=== PATIENT | female | born 1975 | race Caucasian/White ===

== ENCOUNTER 2017-08-09 17:20 | Emergency (ER) | payer BC, OTHER ==
[2017-08-09] MEDS ORDERED: ONDANSETRON HCL INJ/PF 4 MG/2 ML SDV IV ONE (17:37)
[2017-08-09] MEDS ORDERED: NORMAL SALINE 1000 ML 1,000 ML IV ONE ×3 (17:37→20:58)
--- NOTE | 2017-08-09 17:41 | ER Document Report ---
ED Medical Screen (RME) - General Chief Complaint: Fever Stated Complaint: CHEST PAIN Time Seen by Provider: 08/09/17 17:35 Mode of Arrival: Medic Information source: Patient, Relative TRAVEL OUTSIDE OF THE [place] IN LAST 30 DAYS: No - HPI Patient complains to provider of: chest/abdominal/flank pain Onset: Other - pt. states she has been having chest/abd/ and flank pain for the past several days. Has h/o kidney stones and is being treated for a UTI. She states she fell recently and injured her nose - Related Data Allergies/Adverse Reactions: ciprofloxacin [Ciprofloxacin] Allergy (Verified 08/09/17 17:33) codeine [Codeine] Allergy (Verified 08/09/17 17:33) ibuprofen [From Motrin] Allergy (Verified 08/09/17 17:33) ketorolac tromethamine [From Toradol] Allergy (Verified 08/09/17 17:33) naproxen [From Naprosyn] Allergy (Verified 08/09/17 17:33) Penicillins Allergy (Verified 08/09/17 17:33) Sulfa (Sulfonamide Antibiotics) Allergy (Verified 08/09/17 17:33) latex Allergy (Uncoded 08/09/17 17:33) Past Medical History - Past Medical History Cardiac Medical History: Reports: Hx Hypertension Pulmonary Medical History: Reports: Hx Pneumonia Neurological Medical History: Reports: Hx Migraine Renal/ Medical History: Denies: Hx Peritoneal Dialysis Psychiatric Medical History: Reports: Hx Depression Past Surgical History: Reports: Hx Abdominal Surgery - lap band removal 08/08/15 , Hx Appendectomy, Hx Cholecystectomy - 2000, Hx Hysterectomy - Immunizations Hx Diphtheria, Pertussis, Tetanus Vaccination: Yes Physical Exam - Vital signs Vitals: Temp Pulse Resp BP Pulse Ox 100.4 F 90 22 H 99/64 L 98 08/09/17 17:30 08/09/17 17:30 08/09/17 17:30 08/09/17 17:30 08/09/17 17:30 Course - Vital Signs Vital signs: Temp Pulse Resp BP Pulse Ox 100.4 F 90 22 H 99/64 L 98 08/09/17 17:30 08/09/17 17:30 08/09/17 17:30 08/09/17 17:30 08/09/17 17:30
[2017-08-09 18:04] LABS: ABSOLUTE BASOPHILS # (AUTO) 0.1 10^3/uL (0.0-0.2); ABSOLUTE LYMPHOCYTES (AUTO) 1.2 10^3/uL (0.5-4.7); ABSOLUTE MONOCYTES (AUTO) 1.4 10^3/uL (0.1-1.4); ABSOLUTE NEUT (AUTO) 11.9 10^3/uL (1.7-8.2); BASOPHILS % (AUTO) 0.7 % (0-2); HEMATOCRIT 34.9 % (36.0-47.0); HEMOGLOBIN 12.4 g/dL (12.0-15.5); HGB HCT DIFFERENCE 2.3; LYMPHOCYTES % (AUTO) 8.2 % (13-45); MEAN CORPUSCULAR HEMOGLOBIN 31.8 pg (27.0-33.4); MEAN CORPUSCULAR HGB CONC 35.7 g/dL (32.0-36.0); MEAN CORPUSCULAR VOLUME 89 fl (80-97); MONOCYTES % (AUTO) 9.4 % (3-13); RED BLOOD COUNT 3.91 10^6/uL (3.72-5.28); RED CELL DISTRIBUTION WIDTH 13.3 % (11.5-14.0); SEGMENTED NEUTROPHILS % (AUTO) 81.7 % (42-78); WHITE BLOOD COUNT 14.6 10^3/uL (4.0-10.5)
--- NOTE | 2017-08-09 18:09 | RADIOLOGY REPORT (SQ) ---
EXAM DESCRIPTION: CHEST PA/LAT COMPLETED DATE/TIME: 08/09/2017 6:00 pm REASON FOR STUDY: fall; rib injury COMPARISON: 05/28/2016 EXAM PARAMETERS: NUMBER OF VIEWS: two views TECHNIQUE: Digital Frontal and Lateral radiographic views of the chest acquired. RADIATION DOSE: NA LIMITATIONS: none FINDINGS: LUNGS AND PLEURA: No opacities, masses or pneumothorax. No pleural effusion. MEDIASTINUM AND HILAR STRUCTURES: No masses or contour abnormalities. HEART AND VASCULAR STRUCTURES: Heart normal size. No evidence for failure. BONES: No acute findings. HARDWARE: None in the chest. OTHER: No other significant finding. IMPRESSION: NO SIGNIFICANT RADIOGRAPHIC FINDING IN THE CHEST. TECHNICAL DOCUMENTATION: JOB ID: [id number] [employer]- All Rights Reserved
[2017-08-09] MEDS ORDERED: PROMETHAZINE HCL INJ 25 MG/1 ML VIAL IV ONE (18:16)
[2017-08-09 18:28] LABS: ALANINE AMINOTRANSFERASE 46 U/L (9-52); ALBUMIN 4.3 g/dL (3.5-5.0); ALKALINE PHOSPHATASE 111 U/L (38-126); ANION GAP 17 (5-19); ASPARTATE AMINO TRANSFERASE 51 U/L (14-36); BILIRUBIN,DIRECT 0.8 mg/dL (0.0-0.4); BILIRUBIN,TOTAL 1.6 mg/dL (0.2-1.3); BLOOD UREA NITROGEN 50 mg/dL (7-20); CALCIUM 8.8 mg/dL (8.4-10.2); CARBON DIOXIDE 21 mmol/L (22-30); CHLORIDE 92 mmol/L (98-107); CREATINE KINASE 248 U/L (30-135); CREATININE RESULT 2.48 mg/dL (0.52-1.25); GLUCOSE 144 mg/dL (75-110); LIPASE 126.3 U/L (23-300); SODIUM 130.1 mmol/L (137-145); TOTAL PROTEIN 7.3 g/dL (6.3-8.2)
--- NOTE | 2017-08-09 18:28 | RADIOLOGY REPORT (SQ) ---
EXAM DESCRIPTION: CT LTD RENAL STONE PROTOCOL ON COMPLETED DATE/TIME: 08/09/2017 6:06 pm REASON FOR STUDY: fall; rib injury COMPARISON: None. TECHNIQUE: CT scan of the abdomen and pelvis performed without intravenous or oral contrast. Images reviewed with lung, soft tissue, and bone windows. Reconstructed coronal and sagittal MPR images revi ewed. All images stored on PACS. All CT scanners at this facility use dose modulation, iterative reconstruction, and/or weight based d osing when appropriate to reduce radiation dose to as low as reasonably achievable (ALARA). [facility]: Dose Right [facility]: CareDose [facility]: Dose Right [facility]: Teradose 4D [facility]: Smart Remotemedical RADIATION DOSE: Up-to-date CT equipment and radiation dose reduction techniques were employed. CTDIv ol: 18.2 mGy. DLP: 1080 mGy-cm.mGy. LIMITATIONS: None. FINDINGS: LOWER CHEST: No significant findings. No nodules or infiltrates. NON-CONTRASTED LIVER, SPLEEN, ADRENALS: The liver is diffusely hypodense. There are no masses. The spleen is normal. There is no adrenal mass. PANCREAS: No masses. No peripancreatic inflammatory changes. GALLBLADDER: Surgically absent. RIGHT KIDNEY AND URETER: No suspicious masses. Assessment limited by lack of IV contrast. No signif icant calcifications. No hydronephrosis or hydroureter. LEFT KIDNEY AND URETER: No suspicious masses. Assessment limited by lack of IV contrast. No signifi cant urinary calcifications. There appears to be a prominent phlebolith near the left ureter on imag e 58 series 3. No hydronephrosis or hydroureter. AORTA AND RETROPERITONEUM: No aneurysm. No retroperitoneal masses or adenopathy. BOWEL AND PERITONEAL CAVITY: Sigmoid diverticula are present. There are no acute inflammatory change s. APPENDIX: Surgically absent. PELVIS, BLADDER, AND ABDOMINAL WALL:The urinary bladder is incompletely filled but otherwise unremark able. The uterus is absent. There is no adnexal mass or fluid collection. BONES: No significant findings. OTHER: No other significant finding. IMPRESSION: 1. Fatty infiltration of the liver. 2. There is no urinary pathology. 3. Diverticulosis coli. 4. There are no findings that explain the patient's pain. COMMENT: Quality ID # [id number]: Final reports with documentation of one or more dose reduction techniques (e.g., Automated exposure control, adjustment of the mA and/or kV according to patient size, use of iterative reconstruction technique) TECHNICAL DOCUMENTATION: JOB ID: [id number] [employer]- All Rights Reserved
--- NOTE | 2017-08-09 18:34 | EKG REPORT ---
SEVERITY:- OTHERWISE NORMAL ECG - SINUS RHYTHM BORDERLINE LEFT AXIS DEVIATION : Confirmed by: Jamison Soto MD 09-Aug-2017 18:34:22
[2017-08-09 18:37] LABS: CREATINE KINASE MB 1.97 ng/mL (<4.55)
[2017-08-09 18:40] LABS: TROPONIN I < 0.012 ng/mL
[2017-08-09 19:42] LABS: APPEARANCE,URINE SLIGHTLY-CLOUDY; BILIRUBIN,URINE NEGATIVE (NEGATIVE); GLUCOSE, URINE >=500 mg/dL (NEGATIVE); KETONES,URINE NEGATIVE (NEGATIVE); LEUKOCYTE ESTERASE,URINE SMALL (NEGATIVE); NITRITE,URINE NEGATIVE (NEGATIVE); PROTEIN,URINE 30 mg/dL (NEGATIVE); URINE SPECIFIC GRAVITY 1.008; UROBILINOGEN,URINE NEGATIVE mg/dL (<2.0)
[2017-08-09] MEDS ORDERED: ACETAMINOPHEN 325 MG TABLET PO ONE (19:54)
--- NOTE | 2017-08-09 19:59 | ER Document Report ---
ED General - General Chief Complaint: Fever Stated Complaint: CHEST PAIN Time Seen by Provider: 08/09/17 17:35 Mode of Arrival: Medic Information source: Patient Notes: Patient presents stating that she has had left flank pain for the past 5 days and is concerned about possible kidney stone. Patient states she checked her urine at her place of employment 5 days ago and had hematuria. Patient does report a previous history of stones and suspected the same. Patient states that Saturday she saw her primary doctor and was given a Z-Jos to treat sinus congestion and upper respiratory symptoms. Patient states Saturday she had a syncopal episode and fell hitting the left rib area on a chest at home. Patient states she has since had 2 additional syncopal episodes although cannot state specifically when she had them. Patient reports that yesterday she developed nausea and vomiting. Patient states she has had a fever for the past 3 days. Patient complains of feeling dizzy and weak. Patient states she has had decreased oral intake this past week and has had vomiting 3 episodes today. TRAVEL OUTSIDE OF THE [place] IN LAST 30 DAYS: No - HPI Onset: Last week Onset/Duration: Worse Quality of pain: Sharp Pain Level: 5 Associated symptoms: Chest pain, Nonproductive cough, Fever, Nausea, Vomiting, Weakness. denies: Diarrhea, Shortness of breath Exacerbated by: Movement Relieved by: Denies Similar symptoms previously: No Recently seen / treated by doctor: Yes - Related Data Allergies/Adverse Reactions: ciprofloxacin [Ciprofloxacin] Allergy (Verified 08/09/17 17:33) codeine [Codeine] Allergy (Verified 08/09/17 17:33) ibuprofen [From Motrin] Allergy (Verified 08/09/17 17:33) ketorolac tromethamine [From Toradol] Allergy (Verified 08/09/17 17:33) naproxen [From Naprosyn] Allergy (Verified 08/09/17 17:33) Penicillins Allergy (Verified 08/09/17 17:33) Sulfa (Sulfonamide Antibiotics) Allergy (Verified 08/09/17 17:33) latex Allergy (Uncoded 08/09/17 17:33) Home Medications: Current Home Medications Azithromycin [Zithromax 250 mg Tablet] 250 mg PO ASDIR PRN 08/09/17 [History] Past Medical History - General Information source: Patient, Relative - Social History Smoking Status: Never Smoker Chew tobacco use (# tins/day): No Frequency of alcohol use: None Drug Abuse: None 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 denies: Short of breath Gastrointestinal: Abdominal pain, Nausea, Vomiting. denies: Diarrhea Genitourinary: Flank pain, Hematuria Female Genitourinary: No symptoms reported. denies: Musculoskeletal: Back pain Skin: No symptoms reported Hematologic/Lymphatic: No symptoms reported Neurological/Psychological: No symptoms reported Physical Exam - Vital signs Vitals: Temp Pulse Resp BP Pulse Ox 100.4 F 90 22 H 99/64 L 98 08/09/17 17:30 08/09/17 17:30 08/09/17 17:30 08/09/17 17:30 08/09/17 17:30 - General General appearance: Alert In distress: Mild - HEENT Head: Normocephalic, Atraumatic Eyes: Normal Conjunctiva: Normal Nasal: Normal Mucous membranes: Dry Pharynx: Normal Neck: Normal, Supple. No: Lymphadenopathy - Respiratory Respiratory status: No respiratory distress Chest status: Tender - left lateral chest wall tenderness Breath sounds: Normal Chest palpation: Tender - Cardiovascular Rhythm: Regular Heart sounds: S1 appreciated, S2 appreciated Murmur: No - Abdominal Inspection: Morbidly Obese Distension: No distension Bowel sounds: Normal Tenderness: Tender - LUQ tenderness - Back Back: CVA tenderness - left - Extremities General upper extremity: Normal inspection, Normal strength General lower extremity: Normal inspection, Normal strength - Neurological Neuro grossly intact: Yes Cognition: Normal Mathieu Coma Scale Eye Opening: Spontaneous Shorter Coma Scale Verbal: Oriented Mathieu Coma Scale Motor: Obeys Commands Shorter Coma Scale Total: 15 - Psychological Associated symptoms: Normal affect, Normal mood - Skin Skin Temperature: Warm Skin Moisture: Dry Skin Color: Normal Course - Re-evaluation Re-evalutation: 08/09/17 20:51 Patient is requesting to leave and be discharged home. Consulted with Dr. Rojas who recommends admission and treatment for urosepsis with aztreonam and having consultation with infectious disease regarding additional IV antibiotic management. Discussed patient's allergies and renal function, advises giving aztreonam 1 g IV now. 08/09/17 20:58 Patient is agreeable to stay for admission. Call placed to [facility] for infectious disease consultation. 08/09/17 21:[address] Brush regarding need for admission, declines admitting patient based on lack of urology coverage as well as need for infectious disease consultation regarding patient's numerous allergies. 08/09/17 21:[address] Mcdaniel who is on-call for infectious disease and advises giving patient aztreonam 2 g loading dose and have additional doses based on renal functioning. Also recommends giving vancomycin 15 mg/kg 1 dose. 08/09/17 21:[address] Maldonado at [facility] who is hospitalist on for [facility] who agrees to accept patient as a transfer. 08/09/17 21:52 Patient is agreeable with transfer to [facility]. Patient repeatedly asking for additional pain medication. Patient states that she has had fentanyl without any adverse reaction. Patient's tachycardia improved. Blood pressure over 100 systolically. Breath sounds clear at this time. 08/09/17 23:32 Patient states she is feeling better after pain medication. Patient with good peripheral pulses 2+ bilaterally, cap refill less than 3 seconds. Breath sounds clear bilaterally. - Vital Signs Vital signs: Temp Pulse Resp BP Pulse Ox 99.0 F 90 13 99/56 L 99 08/09/17 23:46 08/09/17 17:30 08/09/17 23:45 08/09/17 23:46 08/09/17 23:45 - Laboratory Result Diagrams: 08/09/17 17:50 08/09/17 17:50 Laboratory results interpreted by me: 08/09/17 08/09/1708/09/17 17:50 17:50 17:50 WBC 14.6 H Hct 34.9 L Seg Neutrophils % 81.7 H Lymphocytes % 8.2 L Absolute Neutrophils 11.9 H PT Sodium 130.1 L Chloride 92 L Carbon Dioxide 21 L BUN 50 H Creatinine 2.48 H Est GFR ( Amer) 26 L Est GFR (Non-Af Amer) 22 L Glucose 144 H Magnesium 2.6 H Total Bilirubin 1.6 H Direct Bilirubin 0.8 H AST 51 H Creatine Kinase 248 H Urine Protein Urine Glucose (UA) Urine Blood Ur Leukocyte Esterase 08/09/17 08/09/17 17:50 19:20 WBC Hct Seg Neutrophils % Lymphocytes % Absolute Neutrophils PT 15.5 H Sodium Chloride Carbon Dioxide BUN Creatinine Est GFR ( Amer) Est GFR (Non-Af Amer) Glucose Magnesium Total Bilirubin Direct Bilirubin AST Creatine Kinase Urine Protein 30 H Urine Glucose (UA) >=500 H Urine Blood MODERATE H Ur Leukocyte Esterase SMALL H 08/09/17 21:58 Labs- Entire Visit 08/09/17 08/09/17 08/09/17 17:50 17:50 17:50 WBC 14.6 H RBC 3.91 Hgb 12.4 Hct 34.9 L MCV 89 MCH 31.8 MCHC 35.7 RDW 13.3 Plt Count 306 Seg Neutrophils % 81.7 H Lymphocytes % 8.2 L Monocytes % 9.4 Eosinophils % 0.0 Basophils % 0.7 Absolute Neutrophils 11.9 H Absolute Lymphocytes 1.2 Absolute Monocytes 1.4 Absolute Eosinophils 0.0 Absolute Basophils 0.1 PT INR Sodium 130.1 L Potassium 5.0 Chloride 92 L Carbon Dioxide 21 L Anion Gap 17 BUN 50 H Creatinine 2.48 H Est GFR ( Amer) 26 L Est GFR (Non-Af Amer) 22 L Glucose 144 H Calcium 8.8 Magnesium Total Bilirubin 1.6 H Direct Bilirubin 0.8 H Indirect Bilirubin Not Reportable Neonat Total Bilirubin Not Reportable AST 51 H ALT 46 Alkaline Phosphatase 111 Creatine Kinase 248 H CK-MB (CK-2) 1.97 Troponin I < 0.012 Total Protein 7.3 Albumin 4.3 Lipase 126.3 Urine Color Urine Appearance Urine pH Ur Specific [place] Urine Protein Urine Glucose (UA) Urine Ketones Urine Blood Urine Nitrite Urine Bilirubin Urine Urobilinogen Ur Leukocyte Esterase Urine WBC (Auto) Urine RBC (Auto) U Hyaline Cast (Auto) Urine Bacteria (Auto) Squamous Epi Cells Auto Urine Mucus (Auto) Urine Ascorbic Acid Urine HCG, Qual 08/09/17 08/09/17 08/09/17 17:50 17:50 19:20 WBC RBC Hgb Hct MCV MCH MCHC RDW Plt Count Seg Neutrophils % Lymphocytes % Monocytes % Eosinophils % Basophils % Absolute Neutrophils Absolute Lymphocytes Absolute Monocytes Absolute Eosinophils Absolute Basophils PT 15.5 H INR 1.15 Sodium Potassium Chloride Carbon Dioxide Anion Gap BUN Creatinine Est GFR ( Amer) Est GFR (Non-Af Amer) Glucose Calcium Magnesium 2.6 H Total Bilirubin Direct Bilirubin Indirect Bilirubin Neonat Total Bilirubin AST ALT Alkaline Phosphatase Creatine Kinase CK-MB (CK-2) Troponin I Total Protein Albumin Lipase Urine Color YELLOW Urine Appearance SLIGHTLY-CLOUDY Urine pH 5.0 Ur Specific [place] 1.008 Urine Protein 30 H Urine Glucose (UA) >=500 H Urine Ketones NEGATIVE Urine Blood MODERATE H Urine Nitrite NEGATIVE Urine Bilirubin NEGATIVE Urine Urobilinogen NEGATIVE Ur Leukocyte Esterase SMALL H Urine WBC (Auto) 59 Urine RBC (Auto) 1 U Hyaline Cast (Auto) 1 Urine Bacteria (Auto) 3+ Squamous Epi Cells Auto 2 Urine Mucus (Auto) RARE Urine Ascorbic Acid NEGATIVE Urine HCG, Qual NEGATIVE - Diagnostic Test Radiology reviewed: Reports reviewed Discharge - Discharge Clinical Impression: Flank pain, GLENN (acute kidney injury) Fever Qualifiers: Fever type: unspecified Qualified Code(s): R50.9 - Fever, unspecified Sepsis Qualifiers: Sepsis type: sepsis due to unspecified organism Qualified Code(s): A41.9 - Sepsis, unspecified organism UTI (urinary tract infection) Qualifiers: Urinary tract infection type: acute pyelonephritis Qualified Code(s): N10 - Acute pyelonephritis Condition: Fair Disposition: [facility] Referrals: JOE UP MD [Primary Care Provider] - Follow up as needed
[2017-08-09 20:00] LABS: ADD ON TESTING BLD IN LAB ACKNOWLEDGE
[2017-08-09 20:18] LABS: MAGNESIUM 2.6 mg/dL (1.6-2.3)
[2017-08-09] MEDS ORDERED: AZTREONAM INJ 1 GM VIAL IV ONE ×2 (20:50→21:14)
[2017-08-09] MEDS ORDERED: METOCLOPRAMIDE HCL INJ/PF 10 MG/2 ML SDV IV ONE (21:01)
[2017-08-09 21:02] LABS: PROTHROMBIN TIME 15.5 SEC (11.4-15.4)
[2017-08-09] MEDS ORDERED: VANCOMYCIN HCL INJ 1000 MG VIAL IV ONE (21:15)
[2017-08-09] MEDS ORDERED: FENTANYL CITRATE INJ/PF 100 MCG/2 ML AMPUL IV ONE (21:51)
[2017-08-09 22:00] LABS: VENOUS BLOOD BASE EXCESS -1.8 mmol/L; VENOUS BLOOD HCO3 22.8 mmol/L (20-32); VENOUS BLOOD PCO2 38.6 mmHg (35-63); VENOUS BLOOD PH 7.39 (7.30-7.42)
[2017-08-09] MEDS ORDERED: NORMAL SALINE 1000 ML 1,000 ML IV PRN (23:14)
[2017-08-09 23:59] VITALS: BP 99/56
== END 2017-08-09 23:59 | disposition short-term general hospital (02) ==
LOC: ER 17:20
DX: A41.9 Sepsis, unspecified organism (principal); N10 Acute pyelonephritis; N17.9 Acute kidney failure, unspecified; R10.9 Unspecified abdominal pain; R05 Cough; R11.2 Nausea with vomiting, unspecified; R53.1 Weakness; R50.9 Fever, unspecified; R07.9 Chest pain, unspecified; R55 Syncope and collapse; W22.03XA Walked into furniture, initial encounter; W19.XXXA Unspecified fall, initial encounter
CPT/HCPCS: 93005; 99285; 96361; 96375; 96365; 96366; 96368; 36415; 87040; 87086; 82553; 82550; 83690; 83735; 85025; 85610; 81025; 87088; 80053; 81001; 84484; 87186; 82803; 83605; 71020; 76380; 93010; J3010; J2765; J2550; J7030; J3370; J3490

== ENCOUNTER 2018-07-21 09:18 | Emergency (ER) | payer BC ==
[2018-07-21] MEDS ORDERED: RINGERS SOLUTION,LACTATED 1,000 ML IV ONE (09:41)
[2018-07-21] MEDS ORDERED: ONDANSETRON HCL INJ/PF 4 MG/2 ML SDV IV ONE (09:42)
--- NOTE | 2018-07-21 09:43 | ER Document Report ---
ED Medical Screen (RME) - General Chief Complaint: Dizziness Stated Complaint: DIZZINESS Time Seen by Provider: 07/21/18 09:28 Notes: Patient is a 42-year-old female that presents to the emergency department for chief complaint of lightheadedness, near syncope and nausea. Patient states she has been feeling like this over the course of the weekend, has been worse, she states when she stands up she gets very lightheaded and almost passes out, she has had blurred vision associated. She states this feels similar to when she has had UTI and sepsis, although she denies having any urinary tract symptoms. Such as dysuria, hematuria. No sick contact she is aware of. She is status post hysterectomy after uterine carcinoma.. ROS: Unless otherwise stated in this report the patient's positive and negative responses for review of systems for constitutional, eyes, ENT, cardiovascular, respiratory, gastrointestinal, neurological, genitourinary, musculoskeletal, and integumentary systems and related systems to the presenting problem are either as stated in the HPI or were not pertinent or were negative for the symptoms and/or complaints related to the presenting medical problem. PHYSICAL EXAMINATION: Vital signs reviewed. GENERAL: Well-appearing, well-nourished and in no acute distress. HEAD: Atraumatic, normocephalic. EYES: Pupils equal round extraocular movements intact, conjunctiva are normal. ENT: Nares patent NECK: Normal range of motion CV: Heart regular rate and rhythm LUNGS: No respiratory distress Musculoskeletal: Normal range of motion NEUROLOGICAL: Normal speech PSYCH: Normal mood, normal affect. MDM: Patient seen and examined for rapid initial assessment. Vital signs reviewed. A comprehensive ED assessment and evaluation of the patient, analysis of test results and completion of the medical decision making process will be conducted by additional ED providers. *Note is created using voice recognition software and may contain spelling, syntax or grammatical errors. TRAVEL OUTSIDE OF THE [place] IN LAST 30 DAYS: No - Related Data Allergies/Adverse Reactions: ciprofloxacin [Ciprofloxacin] Allergy (Verified 08/09/17 17:33) codeine [Codeine] Allergy (Verified 08/09/17 17:33) ibuprofen [From Motrin] Allergy (Verified 08/09/17 17:33) ketorolac tromethamine [From Toradol] Allergy (Verified 08/09/17 17:33) naproxen [From Naprosyn] Allergy (Verified 08/09/17 17:33) Penicillins Allergy (Verified 08/09/17 17:33) Sulfa (Sulfonamide Antibiotics) Allergy (Verified 08/09/17 17:33) latex Allergy (Uncoded 08/09/17 17:33) Past Medical History - Social History Chew tobacco use (# tins/day): No Frequency of alcohol use: Occasional Drug Abuse: None - Past Medical History Cardiac Medical History: Reports: Hx Hypertension Pulmonary Medical History: Reports: Hx Pneumonia Neurological Medical History: Reports: Hx Migraine Renal/ Medical History: Reports: Hx Kidney Stones. Denies: Hx Peritoneal Dialysis Psychiatric Medical History: Reports: Hx Depression Past Surgical History: Reports: Hx Abdominal Surgery - lap band removal 08/08/15 , Hx Appendectomy, Hx Cholecystectomy - 2000, Hx Hysterectomy - Immunizations Hx Diphtheria, Pertussis, Tetanus Vaccination: Yes Physical Exam - Vital signs Vitals: Temp Pulse Resp BP Pulse Ox 98.6 F 79 16 94/57 L 97 07/21/18 09:22 07/21/18 09:22 07/21/18 09:22 07/21/18 09:22 07/21/18 09:22 Course - Vital Signs Vital signs: Temp Pulse Resp BP Pulse Ox 98.6 F 79 16 94/57 L 97 07/21/18 09:22 07/21/18 09:22 07/21/18 09:22 07/21/18 09:22 07/21/18 09:22 Doctor's Discharge - Discharge Referrals: JOE UP MD [Primary Care Provider] - Follow up as needed
[2018-07-21] MEDS ORDERED: ACETAMINOPHEN 325 MG TABLET PO ONE (10:21)
--- NOTE | 2018-07-21 10:25 | ER Document Report ---
ED General - General Chief Complaint: Dizziness Stated Complaint: DIZZINESS Time Seen by Provider: 07/21/18 09:28 TRAVEL OUTSIDE OF THE [place] IN LAST 30 DAYS: No - HPI Notes: Patient is a 42-year-old female that presents to the emergency department for chief complaint of lightheadedness. Patient reports not feeling well for the last 3 days. She states when she stands up she gets very lightheaded. She has had a few near syncopal events but denies complete loss of consciousness. Her lightheadedness is improved when she lays down. She states she has felt similarly with urinary tract infections and sepsis in the past. Her last UTI was 1 year ago. She denies any dysuria or hematuria. She does states she has some mild bilateral low back pain which she has had with UTIs in the past. She is also currently endorsing a mild achy headache which is diffuse and also aggravated when she sits up. She did take a Zofran at home for some nausea at 2 AM which gave her minimal relief. She reports nausea with no vomiting. She also reports mild diffuse achy abdominal pain. Past Medical History: Osteosarcoma, uterine cancer, hypertension, SVT Past Surgical History: Hysterectomy, spinal surgery Social History: Vaporized tobacco, denies drugs and alcohol Family History: Reviewed and noncontributory for presenting illness Allergies: Reviewed, see documented allergy list. REVIEW OF SYSTEMS: CONSTITUTIONAL : No fever No chills No diaphoresis No recent illness EENT: No vision changes No congestion No sore throat CARDIOVASCULAR: No chest pain No palpitations RESPIRATORY: No shortness of breath No cough No difficulty breathing GASTROINTESTINAL: abdominal pain nausea No vomiting No diarrhea GENITOURINARY: No dysuria No hematuria No difficulty urinating MUSCULOSKELETAL: back pain No leg pain No arm pain SKIN: No rashes No lesions LYMPHATIC: No swollen, enlarged glands. NEUROLOGICAL: No lightheadedness headache No weakness No paresthesias PSYCHIATRIC: No anxiety No depression PHYSICAL EXAMINATION: Vital signs reviewed, nursing noted reviewed. GENERAL: Well-appearing, well-nourished and in no acute distress. HEAD: Atraumatic, normocephalic. EYES: Eyes appear normal, extraocular movements intact, sclera anicteric, conjunctiva are normal. ENT: nares patent, oropharynx clear without exudates. Moist mucous membranes. NECK: Normal range of motion, supple without lymphadenopathy LUNGS: Breath sounds clear to auscultation bilaterally and equal. No wheezes rales or rhonchi. HEART: Regular rate and rhythm without murmurs ABDOMEN: Soft, mild diffuse tenderness, normoactive bowel sounds. No rebound, guarding, or rigidity. No masses appreciated. EXTREMITIES: Nontender, good range of motion, no pitting or edema. NEUROLOGICAL: No focal neurological deficits. Moves all extremities spontaneously Motor and sensory grossly intact on exam. PSYCH: Normal mood, normal affect. SKIN: Warm, Dry, normal turgor, no rashes or lesions noted on exposed skin - Related Data Allergies/Adverse Reactions: ciprofloxacin [Ciprofloxacin] Allergy (Verified 08/09/17 17:33) codeine [Codeine] Allergy (Verified 08/09/17 17:33) ibuprofen [From Motrin] Allergy (Verified 08/09/17 17:33) ketorolac tromethamine [From Toradol] Allergy (Verified 08/09/17 17:33) naproxen [From Naprosyn] Allergy (Verified 08/09/17 17:33) Penicillins Allergy (Verified 08/09/17 17:33) Sulfa (Sulfonamide Antibiotics) Allergy (Verified 08/09/17 17:33) latex Allergy (Uncoded 08/09/17 17:33) Past Medical History - Social History Smoking Status: Current Every Day Smoker Chew tobacco use (# tins/day): No Frequency of alcohol use: Occasional Drug Abuse: None Family History: Reviewed & Not Pertinent Patient has suicidal ideation: No Patient has homicidal ideation: No - Past Medical History Cardiac Medical History: Reports: Hx Hypertension Pulmonary Medical History: Reports: Hx Pneumonia Neurological Medical History: Reports: Hx Migraine Renal/ Medical History: Reports: Hx Kidney Stones. Denies: Hx Peritoneal Dialysis Psychiatric Medical History: Reports: Hx Depression Past Surgical History: Reports: Hx Abdominal Surgery - lap band removal 08/08/15 , Hx Appendectomy, Hx Cholecystectomy - 2000, Hx Hysterectomy - Immunizations Hx Diphtheria, Pertussis, Tetanus Vaccination: Yes Review of Systems - Review of Systems Notes: Dictated Physical Exam - Vital signs Vitals: Temp Pulse Resp BP Pulse Ox 98.6 F 79 16 94/57 L 97 07/21/18 09:22 07/21/18 09:22 07/21/18 09:22 07/21/18 09:22 07/21/18 09:22 - Notes Notes: Dictated Course - Re-evaluation Re-evalutation: 07/21/18 10:24 Vitals reviewed. Nursing notes reviewed. Patient afebrile and nontoxic- appearing. She does have a low blood pressure and was given IV hydration. 07/21/18 12:28 Patient reevaluated. Her blood pressure has improved to 105/61. She states her lightheadedness is improving. Lab work shows baseline renal insufficiency. She had a slight elevation of potassium at 5.3 with no EKG changes consistent with hyperkalemia. Patient will be given a second liter bolus and reevaluated. Laboratory 07/21/18 07/21/18 07/21/18 10:25 10:25 10:25 WBC 10.9 H RBC 4.45 Hgb 13.8 Hct 40.4 MCV 91 MCH 30.9 MCHC 34.0 RDW 13.4 Plt Count 302 Seg Neutrophils % 70.4 Lymphocytes % 21.6 Monocytes % 7.6 Eosinophils % 0.1 Basophils % 0.3 Absolute Neutrophils 7.7 Absolute Lymphocytes 2.4 Absolute Monocytes 0.8 Absolute Eosinophils 0.0 Absolute Basophils 0.0 Sodium 139.1 Potassium 5.3 H Chloride 102 Carbon Dioxide 24 Anion Gap 13 BUN 50 H Creatinine 2.68 H Est GFR ( Amer) 24 L Est GFR (Non-Af Amer) 20 L Glucose 110 Lactic Acid 0.7 Calcium 9.9 Total Bilirubin 0.5 Direct Bilirubin 0.3 Neonat Total Bilirubin Not Reportable Neonat Direct Bilirubin Not Reportable Neonat Indirect Bili Not Reportable AST 22 ALT 31 Alkaline Phosphatase 93 Total Protein 8.2 Albumin 4.6 Lipase 57.1 Urine Color Urine Appearance Urine pH Ur Specific Quinn Urine Protein Urine Glucose (UA) Urine Ketones Urine Blood Urine Nitrite Urine Bilirubin Urine Urobilinogen Ur Leukocyte Esterase Urine WBC (Auto) Urine RBC (Auto) U Hyaline Cast (Auto) Urine Bacteria (Auto) Squamous Epi Cells Auto Urine Mucus (Auto) Urine Ascorbic Acid 07/21/18 10:25 WBC RBC Hgb Hct MCV MCH MCHC RDW Plt Count Seg Neutrophils % Lymphocytes % Monocytes % Eosinophils % Basophils % Absolute Neutrophils Absolute Lymphocytes Absolute Monocytes Absolute Eosinophils Absolute Basophils Sodium Potassium Chloride Carbon Dioxide Anion Gap BUN Creatinine Est GFR ( Amer) Est GFR (Non-Af Amer) Glucose Lactic Acid Calcium Total Bilirubin Direct Bilirubin Neonat Total Bilirubin Neonat Direct Bilirubin Neonat Indirect Bili AST ALT Alkaline Phosphatase Total Protein Albumin Lipase Urine Color YELLOW Urine Appearance SLIGHTLY-CLOUDY Urine pH 5.0 Ur Specific Quinn 1.020 Urine Protein 100 H Urine Glucose (UA) >=500 H Urine Ketones NEGATIVE Urine Blood SMALL H Urine Nitrite NEGATIVE Urine Bilirubin NEGATIVE Urine Urobilinogen NEGATIVE Ur Leukocyte Esterase NEGATIVE Urine WBC (Auto) 0 Urine RBC (Auto) 0 U Hyaline Cast (Auto) 1 Urine Bacteria (Auto) 1+ Squamous Epi Cells Auto 3 Urine Mucus (Auto) RARE Urine Ascorbic Acid NEGATIVE Chest X-Ray 07/21/18 09:42 IMPRESSION: NO ACUTE RADIOGRAPHIC FINDING IN THE CHEST. 07/21/18 14:02 Patient reevaluated after second liter of fluids. Her blood pressure has remained stable. She states she is feeling much better. She is able to stand and ambulate without further lightheadedness. She is now tolerating oral intake and states her nausea has completely resolved. She is still complaining of a mild headache which she states she gets when she has Zofran. I offered her Tylenol which she did not want to take. Patient has no urinary tract infection or pneumonia. Her abdominal exam is benign and I do not suspect intra -abdominal infection. She has no other signs of sepsis he will be discharged home in stable condition. She will be given Phenergan for her nausea at home. She was counseled on increasing oral hydration. Patient is in agreement with this plan. She will return for new or worsening symptoms. - Vital Signs Vital signs: Temp Pulse Resp BP Pulse Ox 98.6 F 79 16 94/57 L 97 07/21/18 09:22 07/21/18 09:22 07/21/18 09:22 07/21/18 09:22 07/21/18 09:22 - Laboratory Result Diagrams: 07/21/18 10:25 07/21/18 10:25 Laboratory results interpreted by me: 07/21/18 07/21/18 07/21/18 10:25 10:25 10:25 WBC 10.9 H Potassium 5.3 H BUN 50 H Creatinine 2.68 H Est GFR ( Amer) 24 L Est GFR (Non-Af Amer) 20 L Urine Protein 100 H Urine Glucose (UA) >=500 H Urine Blood SMALL H - EKG Interpretation by Me Additional EKG results interpreted by me: 07/21/18 10:44 Interpreted by myself 1040: Normal sinus rhythm, rate 61, normal axis, no ectopy, normal [place] interval, no ST elevation Discharge - Discharge Clinical Impression: Near syncope, Dehydration Hypotension Qualifiers: Hypotension type: unspecified hypotension type Qualified Code(s): I95.9 - Hypotension, unspecified Condition: Stable Disposition: HOME, SELF-CARE Additional Instructions: Please return to the emergency department if you have any worsening, or concern of your symptoms. Please return to the emergency department if you develop chest pain, difficulty breathing, severe abdominal pain, or ongoing vomiting. Please follow-up with your primary care physician in 2-3 days and any other recommended physicians. If prescribed, take all medications as directed. If you have any questions or concerns do not hesitate to return the emergency department for evaluation. [] Prescriptions: Promethazine HCl [Phenergan 25 mg Tablet] 1 tab PO Q6H PRN #15 tablet PRN Reason: Referrals: JOE UP MD [Primary Care Provider] - Follow up as needed
[2018-07-21 10:56] LABS: ABSOLUTE LYMPHOCYTES (AUTO) 2.4 10^3/uL (0.5-4.7); ABSOLUTE MONOCYTES (AUTO) 0.8 10^3/uL (0.1-1.4); ABSOLUTE NEUT (AUTO) 7.7 10^3/uL (1.7-8.2); BASOPHILS % (AUTO) 0.3 % (0-2); EOSINOPHILS % (AUTO) 0.1 % (0-6); HEMATOCRIT 40.4 % (36.0-47.0); HEMOGLOBIN 13.8 g/dL (12.0-15.5); LYMPHOCYTES % (AUTO) 21.6 % (13-45); MEAN CORPUSCULAR HEMOGLOBIN 30.9 pg (27.0-33.4); MEAN CORPUSCULAR VOLUME 91 fl (80-97); MONOCYTES % (AUTO) 7.6 % (3-13); PLATELET COUNT 302 10^3/uL (150-450); RED BLOOD COUNT 4.45 10^6/uL (3.72-5.28); RED CELL DISTRIBUTION WIDTH 13.4 % (11.5-14.0); SEGMENTED NEUTROPHILS % (AUTO) 70.4 % (42-78); TOTAL CELLS COUNTED % (AUTO) 100 %; WHITE BLOOD COUNT 10.9 10^3/uL (4.0-10.5)
[2018-07-21 10:59] LABS: APPEARANCE,URINE SLIGHTLY-CLOUDY; BILIRUBIN,URINE NEGATIVE (NEGATIVE); COLOR,URINE YELLOW; GLUCOSE, URINE >=500 mg/dL (NEGATIVE); KETONES,URINE NEGATIVE (NEGATIVE); LEUKOCYTE ESTERASE,URINE NEGATIVE (NEGATIVE); NITRITE,URINE NEGATIVE (NEGATIVE); PROTEIN,URINE 100 mg/dL (NEGATIVE); UROBILINOGEN,URINE NEGATIVE mg/dL (<2.0)
[2018-07-21] MEDS ORDERED: PROMETHAZINE HCL INJ 25 MG/1 ML VIAL IV ONE (11:05)
[2018-07-21 11:15] LABS: ALANINE AMINOTRANSFERASE 31 U/L (9-52); ALBUMIN 4.6 g/dL (3.5-5.0); ALKALINE PHOSPHATASE 93 U/L (38-126); ANION GAP 13 (5-19); ASPARTATE AMINO TRANSFERASE 22 U/L (14-36); BILIRUBIN,DIRECT 0.3 mg/dL (0.0-0.4); BILIRUBIN,TOTAL 0.5 mg/dL (0.2-1.3); BLOOD UREA NITROGEN 50 mg/dL (7-20); CALCIUM 9.9 mg/dL (8.4-10.2); CARBON DIOXIDE 24 mmol/L (22-30); CHLORIDE 102 mmol/L (98-107); GLUCOSE 110 mg/dL (75-110); LIPASE 57.1 U/L (23-300); POTASSIUM 5.3 mmol/L (3.6-5.0); SODIUM 139.1 mmol/L (137-145); TOTAL PROTEIN 8.2 g/dL (6.3-8.2)
--- NOTE | 2018-07-21 12:04 | RADIOLOGY REPORT (SQ) ---
EXAM DESCRIPTION: CHEST 2 VIEWS COMPLETED DATE/TIME: 07/21/2018 11:33 am REASON FOR STUDY: near syncope COMPARISON: July 2017 EXAM PARAMETERS: NUMBER OF VIEWS: two views TECHNIQUE: Digital Frontal and Lateral radiographic views of the chest acquired. RADIATION DOSE: NA LIMITATIONS: none FINDINGS: LUNGS AND PLEURA: No opacities, masses or pneumothorax. No pleural effusion. MEDIASTINUM AND HILAR STRUCTURES: No masses or contour abnormalities. HEART AND VASCULAR STRUCTURES: Heart normal size. No evidence for failure. BONES: No acute findings. HARDWARE: None in the chest. OTHER: No other significant finding. IMPRESSION: NO ACUTE RADIOGRAPHIC FINDING IN THE CHEST. TECHNICAL DOCUMENTATION: JOB ID: [id number] [employer]- All Rights Reserved Reading location - IP/workstation name: [email or web address]
[2018-07-21] MEDS ORDERED: NORMAL SALINE 1000 ML 1,000 ML IV ONE (12:27)
[2018-07-21 14:20] VITALS: BP 113/88
--- NOTE | 2018-07-21 23:21 | EKG REPORT ---
SEVERITY:- NORMAL ECG - SINUS RHYTHM : Confirmed by: Thomas Noble 21-Jul-2018 23:20:47
== END 2018-07-21 14:15 | disposition home or self-care (01) ==
LOC: ER 09:18
DX: R42 Dizziness and giddiness (principal); F17.200 Nicotine dependence, unspecified, uncomplicated; I10 Essential (primary) hypertension; Z90.710 Acquired absence of both cervix and uterus; Z87.442 Personal history of urinary calculi; Z90.49 Acquired absence of other specified parts of digestive tract; Z88.3 Allergy status to other anti-infective agents; Z88.6 Allergy status to analgesic agent; Z91.040 Latex allergy status; Z88.0 Allergy status to penicillin
CPT/HCPCS: 93005; 99284; 96361; 96374; 36415; 87040; 87086; 83690; 85025; 80053; 81001; 83605; 71046; 93010; J2550; J7030; J7120

== ENCOUNTER 2019-02-24 23:41 | Emergency (ER) | payer BC ==
--- NOTE | 2019-02-25 00:14 | ER Document Report ---
ED General - General Stated Complaint: HYPOTENSION Time Seen by Provider: 02/25/19 00:13 Primary Care Provider: JOE UP MD [Primary Care Provider] - Follow up tomorrow Notes: Patient is a 43-year-old female with a past medical history of hypertension who presents by EMS after a syncopal episode, found to be hypotensive and remained hypotensive in route to the hospital. The patient states that she was sitting on edge of her bed eating chicken when she apparently lost consciousness and fell forward onto the ground. States she woke up on the ground with the paramedics on scene. Patient states that since that time she has had some mild headedness, dizziness and nausea. Symptoms are regarded as being constant in nature. Nothing seems to improve or worsen her symptoms. Denies history of similar symptom in the past. States that she took amlodipine, lisinopril and zolpidem prior to going to bed. She recently restarted amlodipine within the past several weeks. Denies any complications with these medications in the pas t. She denies chest pain but does report some back and shoulder discomfort regarded as being an aching, diffuse soreness as well as some generalized abdominal cramping. Denies any history of DVT or pulmonary embolus, no cardiac history, had a cardiac catheterization several months ago which was normal. TRAVEL OUTSIDE OF THE [place] IN LAST 30 DAYS: No - Related Data Allergies/Adverse Reactions: ciprofloxacin [Ciprofloxacin] Allergy (Verified 08/09/17 17:33) codeine [Codeine] Allergy (Verified 08/09/17 17:33) ibuprofen [From Motrin] Allergy (Verified 08/09/17 17:33) ketorolac tromethamine [From Toradol] Allergy (Verified 08/09/17 17:33) naproxen [From Naprosyn] Allergy (Verified 08/09/17 17:33) Penicillins Allergy (Verified 08/09/17 17:33) Sulfa (Sulfonamide Antibiotics) Allergy (Verified 08/09/17 17:33) latex Allergy (Uncoded 08/09/17 17:33) Past Medical History - General Information source: Patient - Social History Smoking Status: Never Smoker Frequency of alcohol use: None Drug Abuse: None Lives with: Family Family History: Reviewed & Not Pertinent - Past Medical History Cardiac Medical History: Reports: Hx Hypertension Pulmonary Medical History: Reports: Hx Pneumonia Neurological Medical History: Reports: Hx Migraine Renal/ Medical History: Reports: Hx Kidney Stones. Denies: Hx Peritoneal Dialysis Psychiatric Medical History: Reports: Hx Depression Past Surgical History: Reports: Hx Abdominal Surgery - lap band removal 08/08/15, Hx Appendectomy, Hx Cholecystectomy - 2000, Hx Hysterectomy - Immunizations Hx Diphtheria, Pertussis, Tetanus Vaccination: Yes Review of Systems - Review of Systems Notes: Constitutional: Negative for fever. HENT: Negative for sore throat. Eyes: Negative for visual changes. Cardiovascular: Negative for chest pain. Positive for syncope Respiratory: Negative for shortness of breath. Gastrointestinal: Positive for abdominal cramping, negative for vomiting or diarrhea. Genitourinary: Negative for dysuria. Musculoskeletal: Positive for upper back and bilateral shoulder discomfort Skin: Negative for rash. Neurological: Negative for headaches, weakness or numbness. 10 point ROS negative except as marked above and in HPI. Physical Exam - Vital signs Vitals: Temp Resp Pulse Ox 97.5 F 16 99 02/24/19 23:53 02/24/19 23:53 02/24/19 23:53 Interpretation: Hypotensive Notes: PHYSICAL EXAMINATION: GENERAL: Somewhat ill in appearance, pale HEAD: Atraumatic, normocephalic. EYES: Pupils equal round and reactive to light, extraocular movements intact, sclera anicteric, conjunctiva are normal. ENT: nares patent, oropharynx clear without exudates. Moderately dry mucous membranes. NECK: Normal range of motion, supple without lymphadenopathy LUNGS: Breath sounds clear to auscultation bilaterally and equal. No wheezes rales or rhonchi. HEART: Regular rate and rhythm without murmurs, somewhat delayed capillary refill in the bilateral upper and lower extremities ABDOMEN: Soft, nontender, normoactive bowel sounds. No guarding, no rebound. No masses appreciated. EXTREMITIES: Normal range of motion, no pitting or edema. No cyanosis. NEUROLOGICAL: No focal neurological deficits. Moves all extremities spontaneously and on command. PSYCH: Normal mood, normal affect. SKIN: Warm, Dry, normal turgor, no rashes or lesions noted. Course - Re-evaluation Re-evalutation: 02/25/19 00:16 Documentation is delayed as I been at this patient's bedside for the past 30 minutes. Patient does present profoundly hypotensive in the 60s systolic. The patient was noted to be in the 50s to systolic for EMS, received a liter of fluid and have improved her blood pressure but has not had return of hypotension. The patient is awake, alert and mentating although does appears quite pale. She denies chest pain but states that she has some mild abdominal discomfort and pain in her shoulder blades which she attributes to falling. Patient takes lisinopril but states that she only took 10 mg as prescribed today. She adamantly denies chest pain or shortness of breath. EKG without ischemic changes. Blood pressures were taken in all 4 extremities and noted to be symmetric throughout. Pulses symmetric throughout. Patient is currently receiving 2000 mL's of normal saline wide open. Will continue to reassess at regular intervals. Patient is in guarded condition. 02/25/19 01:13 After 2 L of fluid here in the emergency department now a total of 3 L including the 1 L provided by EMS the patient's blood pressure continues to be low although somewhat improved from time of presentation currently 88 on 56. The patient continues to have some back and shoulder discomfort, denies distinct chest pain but continues to note some abdominal cramping. Labs broadly unrem arkable with the exception of mild acute kidney injury consistent with dehydration. However given the persistency of her hypotension and associated back and shoulder pain I do have a persistent concern for possible dissection picture. Patient will therefore undergo CTA of the chest abdomen and pelvis for further clarification. 02/25/19 02:43 CTA of the chest abdomen pelvis without evidence of dissection or pulmonary embolus. Patient's blood pressure has moderately improved currently 95 on 76. I have expressed to the patient my desire to observe her in the has declined. The patient is quite certain that her blood pressure decreases due to taking both amlodipine and lisinopril and she also notes that she has had a 20 pound weight loss in the past several months on purpose and may no longer require antihypertensive agents. The patient will be discharged upon her request and understands that there is risk to this approach including that her blood pressure could deteriorate further she could syncopized, injure herself in the setting of syncope or worst-case near have a cardiac arrest. She recognizes this states that she believes these are very low risks and I do agree that this is a relatively low probability but high risk situation. Patient has capacity, awake, alert, oriented. Able to express risks and benefits of this decision. 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 At this time will discharge with return precautions and follow-up recommendations. Verbal discharge instructions given a the bedside and opportunity for questions given. Medication warnings reviewed. Patient is in agreement with this plan and has verbalized understanding of return precautions and the need for primary care follow-up in the next 24-72 hours. - Vital Signs Vital signs: Temp Pulse Resp BP Pulse Ox 97.5 F 18 95/76 L 100 02/24/19 23:53 02/25/19 02:31 02/25/19 02:31 02/25/19 02:31 - Laboratory Result Diagrams: 02/24/19 23:50 02/24/19 23:50 Laboratory results interpreted by me: 02/24/19 23:50 BUN 30 H Creatinine 1.47 H Est GFR ( Amer) 47 L Est GFR (Non-Af Amer) 39 L Glucose 119 H Total Protein 6.0 L Albumin 3.4 L - Diagnostic Test Radiology reviewed: Image reviewed, Reports reviewed Radiology results interpreted by me: 02/25/19 02:44 Chest x-ray: No acute infiltrate or pneumothorax - EKG Interpretation by Me Additional EKG results interpreted by me: 02/25/19 00:18 Sinus rhythm, rate 69. No ST elevations or depressions. QTC is 450. Critical Care Note - Critical Care Note Total time excluding time spent on procedures (mins): 36 Comments: Critical care time spent obtaining history from patient or surrogate,development of treatment plan with patient or surrogate, evaluation of patient's response to treatment, examination of patient, ordering and performing treatments and interventions, ordering and review of laboratory studies, re-evaluation of patient's condition, ordering and review of radiographic studies Discharge - Discharge Clinical Impression: Abdominal cramping Hypotension Qualifiers: Hypotension type: unspecified hypotension type Qualified Code(s): I95.9 - Hypotension, unspecified Syncope Qualifiers: Syncope type: unspecified Qualified Code(s): R55 - Syncope and collapse Condition: Fair Disposition: HOME, SELF-CARE Additional Instructions: Please discontinue all of your blood pressure medications until we have verified that you actually need antihypertensive agents. Currently, your blood pressure is still somewhat low and you have declined staying in the hospital for further observation. Please return to the emergency department immediately if you devel op recurrent episodes of syncope, chest pain, shortness of breath, confusion, weakness, numbness or any other symptoms that are worrisome to you Referrals: JOE UP MD [Primary Care Provider] - Follow up tomorrow
[2019-02-25] MEDS ORDERED: NORMAL SALINE 1000 ML 2,000 ML IV ONE (00:16)
[2019-02-25 00:30] LABS: ABSOLUTE LYMPHOCYTES (AUTO) 3.2 10^3/uL (0.5-4.7); ABSOLUTE MONOCYTES (AUTO) 0.9 10^3/uL (0.1-1.4); ABSOLUTE NEUT (AUTO) 6.2 10^3/uL (1.7-8.2); ALANINE AMINOTRANSFERASE 40 U/L (9-52); ALBUMIN 3.4 g/dL (3.5-5.0); ALKALINE PHOSPHATASE 65 U/L (38-126); ANION GAP 9 (5-19); ASPARTATE AMINO TRANSFERASE 27 U/L (14-36); BASOPHILS % (AUTO) 0.4 % (0-2); BILIRUBIN,DIRECT 0.2 mg/dL (0.0-0.4); BILIRUBIN,TOTAL 0.3 mg/dL (0.2-1.3); BLOOD UREA NITROGEN 30 mg/dL (7-20); CALCIUM 8.7 mg/dL (8.4-10.2); CARBON DIOXIDE 25 mmol/L (22-30); CHLORIDE 107 mmol/L (98-107); EOSINOPHILS % (AUTO) 0.3 % (0-6); GLUCOSE 119 mg/dL (75-110); HEMATOCRIT 37.5 % (36.0-47.0); HEMOGLOBIN 12.7 g/dL (12.0-15.5); MEAN CORPUSCULAR HEMOGLOBIN 31.1 pg (27.0-33.4); MEAN CORPUSCULAR HGB CONC 33.8 g/dL (32.0-36.0); MEAN CORPUSCULAR VOLUME 92 fl (80-97); MONOCYTES % (AUTO) 8.3 % (3-13); PLATELET COUNT 285 10^3/uL (150-450); POTASSIUM 4.5 mmol/L (3.6-5.0); RED BLOOD COUNT 4.08 10^6/uL (3.72-5.28); RED CELL DISTRIBUTION WIDTH 13.5 % (11.5-14.0); SODIUM 140.6 mmol/L (137-145); TOTAL CELLS COUNTED % (AUTO) 100 %; WHITE BLOOD COUNT 10.4 10^3/uL (4.0-10.5)
--- NOTE | 2019-02-25 00:51 | RADIOLOGY REPORT (SQ) ---
EXAM DESCRIPTION: XR CHEST 1 VIEW COMPLETED DATE/TME: 02/25/2019 00:14 CLINICAL HISTORY: 43 years, Female, syncope, back pain Comparison: None FINDINGS: No focal lung consolidation. No pleural effusion. No pneumothorax. Cardiac and mediastinal silhouette is unremarkable. No acute osseous abnormality. Soft tissues are unremarkable. IMPRESSION: No acute findings. No focal lung consolidation.
[2019-02-25] MEDS ORDERED: METOCLOPRAMIDE HCL INJ/PF 10 MG/2 ML SDV IV ONE (01:12)
[2019-02-25] MEDS ORDERED: LIDOCAINE 5% (700 MG) TRANSDERMAL ADH..PATCH TP ONE (01:12)
--- NOTE | 2019-02-25 02:30 | RADIOLOGY REPORT (SQ) ---
EXAM DESCRIPTION: CT ABDOMEN PELVIS WITHOUT THEN WITH IV CONTRAST, CT CHEST ANGIOGRAPHY WITHOUT THEN WITH IV CONTRAST COMPLETED DATE/TME: 02/25/2019 01:13 CLINICAL HISTORY: 43 years, Female, Persistent hypotension, chest and abdominal pain COMPARISON: CT chest 03/05/2016. CT abdomen/pelvis 11,017. TECHNIQUE: 1146 Images stored on PACS. All CT scanners at this facility use dose modulation, iterative reconstruction, and/or weight based dosing when appropriate to reduce radiation dose to as low as reasonably achievable (ALARA). Axial CTA images with coronal and sagittal MIPS [facility]: Dose Right [facility]: CareDose [facility]: Dose Right [facility]: Teradose 4D [facility]: [employer] LIMITATIONS: None. FINDINGS: CTA chest: The visualized thyroid gland enhances normally. Suboptimal opacification of the pulmonary arterial tree however no convincing evidence for pulmonary most. No large or central PE. Negative for thoracic aneurysm or dissection. No mediastinal or hilar adenopathy. Heart and pericardium are unremarkable. Osseous structures are grossly intact. No pneumothorax. Visualized airways are patent. Lungs are clear. CTA abdomen/pelvis: Osseous structures of the abdomen/pelvis are grossly intact. Fatty infiltrative change to the liver. The spleen, adrenal glands, pancreas, kidneys are unremarkable. Sigmoid diverticulosis. No CT evidence for diverticulitis. No free air or free fluid. The celiac axis, superior mesenteric artery, inferior mesenteric artery are all widely patent. Negative for abdominal aortic aneurysm or dissection. The renal arteries are widely patent bilaterally. The bilateral common, internal, external iliac arteries are widely patent bilaterally. IMPRESSION: The CTA portion of the exam is unremarkable. The lungs are clear. Fatty infiltrative change to the liver. Sigmoid diverticulosis. No CT evidence for diverticulitis. TECHNICAL DOCUMENTATION: Quality ID # [id number]: Final reports with documentation of one or more dose reduction techniques (e.g., Automated exposure control, adjustment of the mA and/or kV according to patient size, use of iterative reconstruction technique) copyright 2011 [employer]- All Rights Reserved
[2019-02-25 03:12] VITALS: BP 95/76
--- NOTE | 2019-02-25 22:16 | EKG REPORT ---
SEVERITY:- NORMAL ECG - SINUS RHYTHM : Confirmed by: Susy Shultz MD 25-Feb-2019 22:15:25
== END 2019-02-25 03:22 | disposition home or self-care (01) ==
LOC: ER 23:41
DX: I95.9 Hypotension, unspecified (principal); R55 Syncope and collapse; R10.84 Generalized abdominal pain; M54.9 Dorsalgia, unspecified; W18.30XA Fall on same level, unspecified, initial encounter; I10 Essential (primary) hypertension; Z88.3 Allergy status to other anti-infective agents; Z88.6 Allergy status to analgesic agent; Z88.0 Allergy status to penicillin; Z87.442 Personal history of urinary calculi; Z90.49 Acquired absence of other specified parts of digestive tract; Z90.710 Acquired absence of both cervix and uterus
CPT/HCPCS: 93005; 99291; 96361; 96374; 36415; 85025; 80053; 84484; 71045; 71275; 74174; 93010; J2765; J7030

== ENCOUNTER → 2019-09-04 | Outpatient (CLI) | payer BC ==
--- NOTE | 2019-09-08 09:01 | WOMENS IMAGING REPORT ---
EXAM DESCRIPTION: 3D SCREENING MAMMO BILAT COMPLETED DATE/TIME: 09/04/2019 1:17 pm REASON FOR STUDY: Z12.31 ENCOUNTER FOR SCREENING MAMMOGRAM FOR MALIGNANT NEOPLASM OF BREAST Z12.31 ENCNTR SCREEN MAMMOGRAM FOR MALIGNANT NEOPLASM OF JUNIOR COMPARISON: 2016 and subsequent. EXAM PARAMETERS: Standard craniocaudal and mediolateral oblique views of each breast recorded using digital acquisition and breast tomosynthesis. Read with the assistance of CAD. .[facility] - [employer] [facility] Drum Worker Version 9.2 LIMITATIONS: None. FINDINGS: Findings present which are benign by mammographic criteria. No suspicious masses, calcific ations or architectural distortion. Pertinent benign findings: Partially circumscribed asymmetry in the right breast. Adjacent biopsy cl ip, reportedly benign. Benign mammographic findings may include one or more of the following: Smooth masses, popcorn/rim/coa rse calcifications, asymmetries, post-procedure changes, and lesions with long-standing stability. IMPRESSION: BENIGN MAMMOGRAPHIC FINDINGS. BIRADS 2 BREAST DENSITY: b. There are scattered areas of fibroglandular density. BIRAD: ASSESSMENT: 2 BENIGN FINDING(S) RECOMMENDATION: ROUTINE SCREENING COMMENT: The patient has been notified of the results by letter per MQSA requirements. Additional no tification policies are in place for contacting patient with suspicious or incomplete findings. Quality ID #[id number]: The [employer] recommends an annual screening mammogram for women aged 40 years or over. This facility utilizes a reminder system to ensure that all patients receive reminder letters, and/or direct phone calls for appointments. This includes reminders for routine scr eening mammograms, diagnostic mammograms, or other Breast Imaging Interventions when appropriate. Th is patient will be placed in the appropriate reminder system. TECHNICAL DOCUMENTATION: FINDING NUMBER: (1) ASSESSMENT: (1) JOB ID: [id number] [employer]- All Rights Reserved Reading location - IP/workstation name: [email or web address]
== END ==
LOC: WI 13:00
PROVIDERS: ATTEND Physician Assistant
DX: Z12.31 Encounter for screening mammogram for malignant neoplasm of breast (principal)
CPT/HCPCS: 77063; 77067